=== PATIENT | female | born 2000 | race Caucasian/White ===

== ENCOUNTER 2022-08-20 11:27 | Day surgery (SDC) | payer MEDICAID ==
[~2022-08-20] VITALS: Ht 165.1 cm; Wt 140.9 kg
[~2022-08-20 11:27] MED LIST: SODIUM CHLORIDE 0.9% 1,000 ML IV ONE; SODIUM CHLORIDE 0.9% 1,000 ML ONE
[2022-08-20] MEDS ORDERED: PROPOFOL 1% 20 ML VIAL IVP ONE (12:00)
[2022-08-20] MEDS ORDERED: LIDOCAINE/PF 2% 5 ML VIAL IM ONE (12:00)
[2022-08-20] MEDS ORDERED: TRAZ-252 PO (12:41)
[2022-08-20] MEDS ORDERED: ONDA-104 PO (12:41)
[2022-08-20] MEDS ORDERED: LIRA3PEN (12:41)
== END 2022-08-20 15:10 | disposition home or self-care (01) ==
LOC: SURGERY 11:27
PROVIDERS: ATTEND Internal Medicine Gastroenterology
DX: K29.70 Gastritis, unspecified, without bleeding (principal); K31.89 Other diseases of stomach and duodenum
CPT/HCPCS: 43239; 84703; C1769; J2704; J3490; J7030; 88305; 88312; 88313